=== PATIENT | male | born 1990 | race American Indian/Alaskan Native ===

== ENCOUNTER 2021-05-25 21:10 | Emergency (ER) | payer SELFPAY ==
[2021-05-25] MEDS ORDERED: ONDANSETRON 4 MG ODT TAB PO/SL ONE ×2 (21:35→22:01)
[2021-05-25] MEDS ORDERED: SODIUM CHLORIDE 0.9% 1000 ML 1,000 ML IV ONE (22:01)
[2021-05-25] MEDS ORDERED: PANTOPRAZOLE 40 MG INJ IV ONE (22:01)
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
[2021-05-25] MEDS ORDERED: ONDANSETRON 4 MG/2 ML INJ IV ONE (22:11)
[2021-05-25 23:12] LABS: Basophils % (Auto) 0.6 % (0.0-1.8); Eosinophils % (Auto) 0.6 % (0.0-4.3); Lymphocytes # (Auto) 1.8 K/mm3 (1.2-5.4); Lymphocytes % (Auto) 27.3 % (13.4-35.0); Mean Corpuscular HGB Conc 34 % (32-34); Mean Corpuscular Volume 85 fl (84-94); Monocytes # (Auto) 0.6 K/mm3 (0.0-0.8); Monocytes % (Auto) 9.8 % (0.0-7.3); Platelet Count 181 K/mm3 (140-440); Red Blood Count 5.53 M/mm3 (3.65-5.03); Red Cell Distribution Width 13.1 % (13.2-15.2)
[2021-05-25 23:34] LABS: Alanine Aminotransferase 11 units/L (7-56); Albumin 4.8 g/dL (3.9-5); BUN/Creatinine Ratio 10; Blood Urea Nitrogen 11 mg/dL (9-20); Calcium 9.6 mg/dL (8.4-10.2); Hemolysis Index 6
[2021-05-25 23:44] LABS: Bilirubin,Direct < 0.2 mg/dL (0-0.2)
[2021-05-26] MEDS ORDERED: ONDANSETRON 4 MG/2 ML INJ IV ONE (00:01)
[2021-05-26] MEDS ORDERED: MORPHINE 4 MG/1 ML INJ IV ONE (00:01)
[2021-05-26 01:02] LABS: Bilirubin,Urine SM (Negative); Blood,Urine NEG (Negative); Color,Urine Amber (Yellow); Mucus,Urine 3+ /HPF
[2021-05-26 01:19] LABS: Ictotest,Urine Negative (Negative)
[2021-05-26] MEDS ORDERED: SODIUM CHLORIDE 0.9% 1000 ML 1,000 ML IV ONE (01:24)
[2021-05-26 04:06] VITALS: BP 124/72
== END 2021-05-26 04:05 | disposition home or self-care (01) ==
LOC: ED 21:10
DX: R11.2 Nausea with vomiting, unspecified (principal); E86.0 Dehydration; R10.84 Generalized abdominal pain
CPT/HCPCS: 36415; 80048; 80076; 81001; 83690; 85025; 96361; 96374; 96375; 96376; 99283; C9113; J2270; J2405; J7030

== ENCOUNTER 2021-10-04 03:25 | Emergency (ER) | payer SELFPAY ==
[2021-10-04] MEDS ORDERED: TETANUS,DIPH,PERTUSS(ACELL) VACCINE 0.5 ML SYRINGE IM ONE (03:32)
[2021-10-04] MEDS ORDERED: ceFAZolin/NS 1 GM/50 ML 1 GM/50 ML BAG IV ONE (03:32)
[2021-10-04] MEDS ORDERED: HYDROmorphone 1 MG/1 ML INJ IV ONE ×2 (03:32→03:57)
[2021-10-04] MEDS ORDERED: ONDANSETRON 4 MG/2 ML INJ IV ONE (03:32)
[2021-10-04] MEDS ORDERED: SODIUM CHLORIDE 0.9% 1000 ML 1,000 ML IV ONE (03:35)
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
[2021-10-04 03:51] LABS: Hematocrit 42.7 % (35.5-45.6); Hemoglobin 14.3 gm/dl (11.8-15.2); Mean Corpuscular HGB Conc 33 % (32-34); Mean Corpuscular Volume 84 fl (84-94); Platelet Count 170 K/mm3 (140-440); Red Cell Distribution Width 13.2 % (13.2-15.2)
[2021-10-04 04:03] LABS: INR 0.95 (0.87-1.13)
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
[2021-10-04 04:17] LABS: BUN/Creatinine Ratio 8; Blood Urea Nitrogen 9 mg/dL (9-20); Calcium 9.6 mg/dL (8.4-10.2); Hemolysis Index 8
[2021-10-04 05:12] VITALS: BP 135/85
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
--- NOTE | 2021-10-06 11:25 | Electrocardiograph Report ---
[facility] Test Date: 2021-10-04 Test Time: 04:07:53 Pat Name: ROMIE VASQUEZ Department: Room: Gender: M [employer] [place] Worker: Anthony LEVY : 1990 Requested By: CHARITY MATTHEWS Order Number: [id number] Reading MD: Ananth Mosley Measurements Intervals [place] Rate: 89 P: 63 [place]: 146 QRS: 29 QRSD: 86 T: 36 QT: 356 QTc: 433 Interpretive Statements Sinus rhythm Normal ECG No previous ECG available for comparison Electronically Signed On 10-06-2021 11:25:14 EST by Ananth Mosley
== END 2021-10-04 05:12 | disposition short-term general hospital (02) ==
LOC: ED 03:25
DX: S62.610B Displaced fracture of proximal phalanx of right index finger, initial encounter for open fracture (principal); S00.81XA Abrasion of other part of head, initial encounter; F12.10 Cannabis abuse, uncomplicated; W34.09XA Accidental discharge from other specified firearms, initial encounter; Y93.89 Activity, other specified; Y92.89 Other specified places as the place of occurrence of the external cause; Y99.8 Other external cause status
CPT/HCPCS: 36415; 71045; 73120; 80048; 82550; 83735; 85027; 85610; 90471; 90715; 93005; 96365; 96375; 99285; J0690; J1170; J2405; J7030; 80320; Q0162; G0480

== ENCOUNTER 2021-10-20 19:33 | Emergency (ER) | payer SELFPAY | END 2021-10-21 05:35 | LOC: ED 19:33 | DX: M79.606 Pain in leg, unspecified (principal); Z53.21 Procedure and treatment not carried out due to patient leaving prior to being seen by health care provider ==